=== PATIENT | female | born 1985 | race Two or more races ===

== ENCOUNTER 2018-02-25 13:48 | Emergency (ER) | payer SELFPAY ==
[~2018-02-25] VITALS: Ht 162.6 cm; Wt 45.4 kg
--- NOTE | 2018-02-25 13:54 | NUR ---
A/OX3, PT IS COMPLAINING OF CHEST PAIN AFTER TAKING "EDIBLES" 30 MINUTES [employer]. PT APPEARS ANXIOUS. GOWNED AND PLACED ON CONT CARDIAC AND POX MONITORING. ORDERED STAT EKG.ALL NEEDS ATE ATTENDED. WILL CONT TO MONITOR
[2018-02-25] MEDS ORDERED: LORAZEPAM 1 MG TABLET ONE (13:59)
[2018-02-25] MEDS ORDERED: LORAZEPAM 1 MG TABLET PO ONE (14:00)
--- NOTE | 2018-02-25 16:39 | NUR ---
Patient discharged to home in stable condition. Written and verbal after care instructions given. Patient verbalizes understanding of instruction.
[2018-02-25 16:44] VITALS: BP 139/77
== END 2018-02-25 16:45 | disposition home or self-care (01) ==
LOC: ER 13:51
DX: F41.9 Anxiety disorder, unspecified (principal); F12.929 Cannabis use, unspecified with intoxication, unspecified; R00.0 Tachycardia, unspecified
CPT/HCPCS: 93005; 99284; A4606; Z7610